=== PATIENT | male | born 1965 | race Caucasian/White ===

== ENCOUNTER 2017-05-27 17:06 | Emergency (ER) | payer OTHER ==
[~2017-05-27] VITALS: Ht 165.1 cm; Wt 98.2 kg
[2017-05-27 17:14] VITALS: Ht 165.1 cm; Wt 98.2 kg
[2017-05-27] MEDS ORDERED: KETOROLAC 30 MG INJ IM STA (18:11)
[2017-05-27] MEDS ORDERED: HYDROCODONE/APAP (5/325) TAB PO ONE (18:30)
--- NOTE | 2017-05-27 19:34 | RADRPT ---
PROCEDURE: Abdomen x-ray CLINICAL INDICATION: Constipation. TECHNIQUE: 4 frontal views the abdomen. COMPARISON: None. FINDINGS: Nonobstructive and nonspecific bowel gas pattern. Moderate solid stool in the transverse and descend ing colons. Mild solid stool in the cecum. Likely mild small bowel ileus in the right lower quadran t. Lung bases are clear. No unusual calcifications are identified over the abdomen. IMPRESSION: Nonobstructive nonspecific bowel gas pattern of the abdomen. RPTAT: UU Physician Karen Date Time Electronically viewed and signed by Ayleen Monte Physician on 05/27/2017 19:33 RS/
--- NOTE | 2017-05-27 19:39 | RADRPT ---
PROCEDURE: X-ray lumbar spine CLINICAL INDICATION: Lower back pain. TECHNIQUE: 3 views of the lumbar spine. COMPARISON: None FINDINGS: Anterior wedge deformities at T12 and L1 levels. Mild superior endplate collapse at L4. Degenerative changes in posterior facets at the L5-S1 level with posterior disk space narrowing. Di sk spaces otherwise substantially preserved. No acute fracture otherwise identified. IMPRESSION: 1. Age indeterminate anterior wedge deformities at T12 and L1 levels. 2. Mild superior endplate collapse at L4. 3. Otherwise, no acute fracture. RPTAT: UU Physician Karen Date Time Electronically viewed and signed by Physician Karen on 05/27/2017 19:39 RS/
--- NOTE | 2017-05-27 21:31 | RADRPT ---
PROCEDURE: CT L-Spine. CLINICAL INDICATION: Low back pain TECHNIQUE: A CT of the lumbar spine was performed on a GE 64-slice CT scanner utilizing high-resol ution thin section axial images from the thoracic lumbar junction through the lumbar sacral junction . Sagittal and coronal and multiplanar reformatted images were made. The CTDIvol is 25.17 mGy and t he DLP is 774.45 mGycm. One of the following 3 dose reduction techniques were utilized on this CT examination: Automated ex posure control; adjustment of the mA and/or kV according to patient size; or use of iterative recon struction technique. COMPARISON: Lumbar spine series dated 05/27/2017 FINDINGS: The visualized spine alignment demonstrates mild straightening of the normal lumbar lordosis. The ap pearance of an acute superior compression fracture deformity of the T12 vertebral body is noted with approximately 30% vertebral body height loss. And indeterminate age L1 vertebral body compression fracture is noted with approximately 45% vertebral body height loss. In addition , a chronic appear ing compression fracture deformity is noted of the L4 vertebral body with 30% vertebral body height loss. Recommend MRI of the lumbar spine to evaluate for acuity of above vertebral body fractures an d potential vertebral plasty candidacy. Degenerative endplate and disk changes are noted at the L5- S1 level with severe disk space height loss. The remainder the disk spaces are preserved. The visualized posterior elements are intact and well aligned. The bilateral paravertebral soft tis sues imaged demonstrate multiple left renal cortical cysts. These are incompletely evaluated. In a ddition, ankylosis is noted of the anterior superior portion of the sacroiliac joints with generaliz ed osteopenia. The specific axial levels are as follows: T11-12: The intervertebral discs is normal. The central canal, subarticular recess and neural fora men are patent. T12-L1: The intervertebral discs is normal. The central canal, subarticular recess, and neural for amen are patent. L1-2: The intervertebral discs is normal. A mild 3 mm broad-based bulge is present. Mild bilateral facet arthropathy is present. The central canal, subarticular recesses are patent. Mild bilateral neural foraminal stenosis is present. Recommend correlation with a bilateral L1 radiculopathy. L2-3: The intervertebral discs is normal with a mild 2 mm broad-based bulge. Mild bilateral facet a rthropathy and ligamentum hypertrophy is present. The central canal, subarticular recess and neural foramen are patent. L3-4: The intervertebral disk is normal. A mild 3 mm broad-based bulge is present. Mild bilateral facet arthropathy and ligamentum hypertrophy is present. AP canal dimension is 10 mm. This results in a mild central canal stenosis, bilateral subarticular recess stenosis and bilateral neural reji inal stenosis. Recommend correlation with a bilateral L3 radiculopathy. L4-5: The L4-5 level: The intervertebral discs is normal. A moderate 4 mm broad-based bulge is pre sent. Mild bilateral facet arthropathy and ligamentum hypertrophy is present. AP canal dimension i s 9.6 mm. This results in a mild central, bilateral subarticular recess stenosis and mild bilateral neural foraminal stenosis. Recommend correlation with a bilateral L4 radiculopathy. L5-1: Severe degenerative endplate and disk changes are present at this level. A 5 mm moderate broa d-based bulge is present. Moderate bilateral facet arthropathy and ligamentum flavum hypertrophy is present. AP canal dimension is 6 mm. This results in a severe central, bilateral subarticular rece ss stenosis and moderate bilateral neural foraminal stenosis. Recommend correlation with a bilateral L5 radiculopathy secondary to neural foraminal stenosis and bilateral S1 radiculopathy secondary to subarticular recess stenosis. IMPRESSION: 1. Likely acute T12 vertebral body compression fracture with approximately 30% vertebral body heig ht loss and probable chronic L1 and L4 vertebral body fractures with 45% height loss and 30% height loss respectively. Recommend lumbar spine MRI to further evaluate for acuity and potential vertebra l plasty candidacy. 2. Severe degenerative endplate and disk changes at L5-S1 3. Multilevel broad-based bulges at the L1-2 through L5-S1 levels with severe central canal stenosi s at L5-S1 and mild at L3-4 and L4-5. 4. Multilevel neural foraminal stenosis at the L1-2, L3-4 through L5-S1 levels. Recommend correlat ion with respective radiculopathy as noted above. 5. Multilevel facet osteoarthropathy and ligamentum flavum hypertrophy. 6. 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 7. Generalized osteopenia 8. Multiple left renal cortical cysts incompletely evaluated and consider renal ultrasound or CT wi th contrast to further evaluate. RPTAT: HDC .Rama Zarate MD, MD Date Time Electronically viewed and signed by .Rama Zarate MD, MD on 05/27/2017 21:30 .C/
[2017-05-27] MEDS ORDERED: HYDR-906 PO (22:22)
[2017-05-27] MEDS ORDERED: DOCU-144 PO (22:22)
--- NOTE | 2017-05-27 22:41 | ERD ---
ER Documentation Chief Complaint Date/Time DATE: 05/27/17 TIME: 22:34 Chief Complaint 8/10 lower back pain x 1 day HPI Patient is a 51-year-old male with no past medical history who presents to the ED with low back pain after lifting a heavy box today. Patient states that he lifted a heavy box and developed pain to his low back side on the left and it radiates to the front. Denies bowel or bladder incontinence. Denies loss of sensation. He is also complaining of constipation for the last 4 days. He does not have a history of constipation. Denies dysuria urgency. Denies fever or chills. Denies abdominal pain, nausea, vomiting or diarrhea. Denies headache or dizziness. Denies passing out or hitting his head. ROS All systems reviewed and are negative except as per history of present illness. Medications Home Meds Active Scripts Docusate Sodium* (Colace*) 100 Mg Capsule, 100 MG PO TID, #30 CAP Prov:CLAIR PEREZ PA-C 05/27/17 Hydrocodone/Acetaminophen ([place]ky 5-325 Tablet) 1 Each Tablet, 1 TAB PO Q6H Y for PAIN, #7 TAB Prov:CLAIR PEREZ PA-C 05/27/17 Allergies Allergies: Coded Allergies: No Known Allergy (Unverified , 05/27/17) PMhx/Soc Medical and Surgical Hx: pt denies Surgical Hx History of Surgery: No Anesthesia Reaction: No Hx Neurological Disorder: No Hx Respiratory Disorders: No Hx Cardiac Disorders: No Hx Psychiatric Problems: No Hx Miscellaneous Medical Probl: Yes (Cholesterol) Hx Alcohol Use: No Hx Substance Use: No Hx Tobacco Use: No Smoking Status: Never smoker FmHx Family History: No coronary disease, No diabetes, No other Physical Exam Vitals Vital Signs Date Time Temp Pulse Resp B/P Pulse Ox O2 Delivery O2 Flow Rate FiO2 05/27/17 17:14 98.8 106 18 149/88 99 Physical Exam GENERAL: Well-developed, well-nourished male. Appears in no acute distress. HEAD: Normocephalic, atraumatic. EYES: Pupils are equally reactive bilaterally. EOMs grossly intact. No conjunctival erythema. ENT: Moist mucous membranes. No uvula deviation. No kissing tonsils. No exudates. NECK: Supple. No lymphadenopathy or thyromegaly. No meningismus. negative kernig. negative brudinski. LUNG: Clear to auscultation bilaterally. No rhonchi, wheezing, rales or coarse breath sounds. HEART: Regular rate and rhythm. No murmurs, rubs or gallops. ABDOMEN: No scars, ecchymosis or rashes noted. Soft, nontender, and nondistended. Positive bowel sounds in all four quadrants. No rebound tenderness , no guarding. (-) McBurneys point tenderness. No CVA tenderness. BACK: No midline tenderness. no spibal tenderness. paraspinal tenderness on left. Extremities: Equal pulses bilaterally. No peripheral clubbing, cyanosis or edema. No unilateral leg swelling. NEUROLOGIC: Alert and oriented. Moving all four extremities. Normal speech. Steady gait. SKIN: Normal color. Warm and dry. No rashes or lesions. Capillary refill < 2 seconds Results 24 hrs Current Medications Medications (Trade) Dose Ordered Sig/Yovany Route PRN Reason Start Time Stop Time Status Last Admin Dose Admin Ketorolac Tromethamine (Toradol) 30 mg ONCE STAT IM 05/27/17 18:11 05/27/17 18:12 DC 05/27/17 18:30 Acetaminophen/ Hydrocodone Bitart ([place]ky (5/325)) 1 tab ONCE ONCE PO 05/27/17 18:30 05/27/17 18:31 DC 05/27/17 18:29 Procedures/MDM ER COURSE: I kept the patient and/or family informed of laboratory and diagnostic imaging results throughout the emergency room course. IMAGING STUDIES [place] [address] Radiology Main Line: [phone] DIAGNOSTIC IMAGING REPORT Patient: VIJAYA GONZALEZ : 1965 Age: 51 Sex: M MR #: [id number] DOS: 05/27/17 1811 Ordering MD: CLAIR PEREZ PA-C Location: [facility] Room/Bed: PROCEDURE: Abdomen x-ray CLINICAL INDICATION: Constipation. TECHNIQUE: 4 frontal views the abdomen. COMPARISON: None. FINDINGS: Nonobstructive and nonspecific bowel gas pattern. Moderate solid stool in the transverse and descending colons. Mild solid stool in the cecum. Likely mild small bowel ileus in the right lower quadrant. Lung bases are clear. No unusual calcifications are identified over the abdomen. IMPRESSION: Nonobstructive nonspecific bowel gas pattern of the abdomen. RPTAT: UU Physician Karen Date Time Electronically viewed and signed by Physician Karen on 05/27/2017 19:33 RS/ CC: CLAIR PEREZ PA-C [place] [address] Radiology Main Line: [phone] DIAGNOSTIC IMAGING REPORT Patient: VIJAYA GONZALEZ : 1965 Age: 51 Sex: M MR #: [id number] DOS: 05/27/17 1811 Ordering MD: CLAIR PEREZ PA-C Location: [facility] Room/Bed: PROCEDURE: X-ray lumbar spine CLINICAL INDICATION: Lower back pain. TECHNIQUE: 3 views of the lumbar spine. COMPARISON: None FINDINGS: Anterior wedge deformities at T12 and L1 levels. Mild superior endplate collapse at L4. Degenerative changes in posterior facets at the L5-S1 level with posterior disk space narrowing. Disk spaces otherwise substantially preserved. No acute fracture otherwise identified. IMPRESSION: 1. Age indeterminate anterior wedge deformities at T12 and L1 levels. 2. Mild superior endplate collapse at L4. 3. Otherwise, no acute fracture. RPTAT: UU Physician Karen Date Time Electronically viewed and signed by Physician Karen on 05/27/2017 19:39 RS/ CC: CLAIR PEREZ PA-C [place] [address] Radiology Main Line: [phone] DIAGNOSTIC IMAGING REPORT Patient: VIJAYA GONZALEZ : 1965 Age: 51 Sex: M MR #: [id number] DOS: 05/27/171942 Ordering MD: CLAIR PEREZ PA-C Location: [facility] Room/Bed: PROCEDURE: CT L-Spine. CLINICAL INDICATION: Low back pain TECHNIQUE: A CT of the lumbar spine was performed on a GE 64-slice CT scanner utilizing high-resolution thin section axial images from the thoracic lumbar junction through the lumbar sacral junction. Sagittal and coronal and multiplanar reformatted images were made. The CTDIvol is 25.17 mGy and the DLP is 774.45 mGycm. One of the following 3 dose reduction techniques were utilized on this CT examination: Automated exposure control; adjustment of the mA and/or kV according to patient size; or use of iterative reconstruction technique. COMPARISON: Lumbar spine series dated 05/27/2017 FINDINGS: The visualized spine alignment demonstrates mild straightening of the normal lumbar lordosis. The appearance of an acute superior compression fracture deformity of the T12 vertebral body is noted with approximately 30% vertebral body height loss. And indeterminate age L1 vertebral body compression fracture is noted with approximately 45% vertebral body height loss. In addition , a chronic appearing compression fracture deformity is noted of the L4 vertebral body with 30% vertebral body height loss. Recommend MRI of the lumbar spine to evaluate for acuity of above vertebral body fractures and potential vertebral plasty candidacy. Degenerative endplate and disk changes are noted at the L5- S1 level with severe disk space height loss. The remainder the disk spaces are preserved. The visualized posterior elements are intact and well aligned. The bilateral paravertebral soft tissues imaged demonstrate multiple left renal cortical cysts. These are incompletely evaluated. In addition, ankylosis is noted of the anterior superior portion of the sacroiliac joints with generalized osteopenia. The specific axial levels are as follows: T11-12: The intervertebral discs is normal. The central canal, subarticular recess and neural foramen are patent. T12-L1: The intervertebral discs is normal. The central canal, subarticular recess, and neural foramen are patent. L1-2: The intervertebral discs is normal. A mild 3 mm broad-based bulge is present. Mild bilateral facet arthropathy is present. The central canal, subarticular recesses are patent. Mild bilateral neural foraminal stenosis is present. Recommend correlation with a bilateral L1 radiculopathy. L2-3: The intervertebral discs is normal with a mild 2 mm broad-based bulge. Mild bilateral facet arthropathy and ligamentum hypertrophy is present. The central canal, subarticular recess and neural foramen are patent. L3-4: The intervertebral disk is normal. A mild 3 mm broad-based bulge is present. Mild bilateral facet arthropathy and ligamentum hypertrophy is present. AP canal dimension is 10 mm. This results in a mild central canal stenosis, bilateral subarticular recess stenosis and bilateral neural foraminal stenosis. Recommend correlation with a bilateral L3 radiculopathy. L4-5: The L4-5 level: The intervertebral discs is normal. A moderate 4 mm broad-based bulge is present. Mild bilateral facet arthropathy and ligamentum hypertrophy is present. AP canal dimension is 9.6 mm. This results in a mild central, bilateral subarticular recess stenosis and mild bilateral neural foraminal stenosis. Recommend correlation with a bilateral L4 radiculopathy. L5-1: Severe degenerative endplate and disk changes are present at this level. A 5 mm moderate broad-based bulge is present. Moderate bilateral facet arthropathy and ligamentum flavum hypertrophy is present. AP canal dimension is 6 mm. This results in a severe central, bilateral subarticular recess stenosis and moderate bilateral neural foraminal stenosis. Recommend correlation with a bilateral L5 radiculopathy secondary to neural foraminal stenosis and bilateral S1 radiculopathy secondary to subarticular recess stenosis. IMPRESSION: 1. Likely acute T12 vertebral body compression fracture with approximately 30 % vertebral body height loss and probable chronic L1 and L4 vertebral body fractures with 45% height loss and 30% height loss respectively. Recommend lumbar spine MRI to further evaluate for acuity and potential vertebral plasty candidacy. 2. Severe degenerative endplate and disk changes at L5-S1 3. Multilevel broad-based bulges at the L1-2 through L5-S1 levels with severe central canal stenosis at L5-S1 and mild at L3-4 and L4-5. 4. Multilevel neural foraminal stenosis at the L1-2, L3-4 through L5-S1 levels. Recommend correlation with respective radiculopathy as noted above. 5. Multilevel facet osteoarthropathy and ligamentum flavum hypertrophy. 6. 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 7. Generalized osteopenia 8. Multiple left renal cortical cysts incompletely evaluated and consider renal ultrasound or CT with contrast to further evaluate. RPTAT: HDC .Rama Zarate MD, MD Date Time Electronically viewed and signed by .Rama Zarate MD, MD on 05/27/2017 21: 30 .C/ CC: CLAIR PEREZ PA-C MEDICAL DECISION MAKING: This is a 51-year-old male who presents with low back pain and constipation. Vital signs were reviewed. Patient is afebrile. Patient is not hypoxic. Patient is nontoxic or ill-appearing. Patient's ultrasound is within normal limits. Patient has constipation. Low suspicion for ACS, AAA, perforated ulcer , bowel obstruction, cholecystitis, choledocholithiasis, cholangitis, pancreatitis, hepatic abscess, appendicitis, diverticulitis, gastroenteritis, hepatitis, peptic ulcer disease. I consulted with my supervising physician Dr. Coelho who advised me to order a CT back after reading the x-rays. CT lumbar spine was within normal limits. I had my supervising physician Dr. dueñas review the imaging studies and stated that the CT was within normal limits and patient is stable for outpatient therapy. Patient was given Toradol and Valium here in the ED. Tolerated well and had improvement in symptoms. I reexamined patient after administration of medication and patient was seen walking around comfortably within the examination room. Low suspicion for cauda equine syndrome, spinal epidural hematoma, spinal epidural abscess, osteomyelitis, fracture, aortic dissection, AAA, pyelonephritis, nephrolithiasis, septic stone , obstructed stone. DISCHARGE: At this time, patient is stable for discharge and outpatient management with no new complaints during the ER course. Patient was sent home with Anna and Lorrie and a copy of all imaging report. Patient will be discharged home with instructions to recheck for new or worsening symptoms such as fever, nausea, weakness, LOC and to follow up with primary care in the next 1-2 days. Patient was advised to return to the ER for any new or worsening symptoms. Plan was discussed and patient and/or family understands and agrees. Home instructions were given. Departure Diagnosis: Primary Impression: Constipation Constipation type: unspecified constipation type Qualified Code: K59.00 - Constipation, unspecified constipation type Additional Impression: Back pain Back pain location: low back pain Chronicity: acute Back pain laterality: bilateral Sciatica presence: without sciatica Qualified Code: M54.5 - Acute bilateral low back pain without sciatica Condition: Stable Patient Instructions: Constipation (Adult) [facility] Usted se delgado hecho un examen mdico de control que le indica que no est en dani condicin que requiera tratamiento urgente en el Departamento de Emergencia. Un estudio ms profundo y el tratamiento de jensen condicin pueden esperar sin ningn riesgo hasta que usted sea atendida/o en el consultorio de jensen mdico o dani cl george. Es responsabilidad suya arreglar dani kapil para el seguimiento del sheila. MANEJO DE CONDICIONES NO URGENTES EN EL FUTURO 1) Si usted tiene un mdico de atencin primaria: Usted debera llamar a jensen mdico de atencin primaria antes de venir al departamento de emergencia. Despus de las horas de consultorio, jensen doctor o jensen asociado/a est disponible por telfono. El mdico o enfermero de shital en el servicio telefnico puede asesorarle por lydia medio para atender el problema, o sheila contrario se puede programar dani kapil. 2) Si usted no tiene un mdico de atencin primaria: Llame al mdico o clnica de referencia que aparece abajo rachel las horas de consultorio para hacer dani kapil para que le vean. CLINICAS: [facility] [phone] [facility] [phone] [address] [facility] [phone] [facility] [phone] [facility] [phone] [address] [facility]. [phone] [address] Additional Instructions: Llame al doctor MAANA y marcos dani KAPIL PARA DENTRO DE 1-2 CONTRERAS.Dgale a la secretaria que nosotros le instruimos hacer esta kapil.Avise o llame si jenesn condicin se empeora antes de la kapil. Regresa aqui si peor o no mejor. CLAIR PEREZ PA-C May 27, 2017 22:41
[2017-05-27 22:51] VITALS: BP 134/89; PULSE 92; RESP 18; TEMP 97.7
== END 2017-05-27 23:30 | disposition home or self-care (01) ==
LOC: FTE 17:06
DX: K59.00 Constipation, unspecified (principal)
CPT/HCPCS: 72100; 72131; 74010; 96372; J1885; Z7502; Z7610

== ENCOUNTER 2017-07-11 11:43 | Emergency (ER) | payer OTHER ==
[~2017-07-11] VITALS: Ht 172.7 cm; Wt 65.5 kg
[~2017-07-11 11:43] MED LIST: DOCU-144 PO; HYDR-906 PO
[2017-07-11 11:54] VITALS: Ht 172.7 cm; Wt 65.5 kg
[2017-07-11] MEDS ORDERED: KETOROLAC 60 MG INJ IM STA (12:25)
[2017-07-11 13:01] LABS: ADD UMIC NO; UR ASCORBIC ACID NEGATIVE (NEGATIVE); UR BILIRUBIN (Dip) NEGATIVE (NEGATIVE); UR BLOOD (Dip) NEGATIVE (NEGATIVE); UR CLARITY CLEAR (CLEAR); UR COLOR YELLOW (YELLOW); UR GLUCOSE (Dip) NEGATIVE (NEGATIVE); UR KETONES (Dip) NEGATIVE (NEGATIVE); UR LEUKOCYTE ESTERASE (Dip) NEGATIVE Leu/ul (NEGATIVE); UR NITRITE (Dip) NEGATIVE (NEGATIVE); UR SPECIFIC GRAVITY (Dip) 1.015 (1.003-1.030); UR TOTAL PROTEIN (Dip) NEGATIVE (NEGATIVE); UR UROBILINOGEN (Dip) NEGATIVE (NEGATIVE)
--- NOTE | 2017-07-11 14:47 | RADRPT ---
PROCEDURE: CT Abdomen and Pelvis without contrast. CLINICAL INDICATION: Abdominal and back pain x3 weeks TECHNIQUE: CT of the abdomen and pelvis was performed on a multi-detector scanner without IV contr ast. Coronal and sagittal images were reformatted from the axial data set. One or more of the foll owing dose reduction techniques were used: automated exposure control, adjustment of the mA and/or k V according to patient size, use of iterative reconstruction technique. CTDI = 6.9 mGy. DLP = 407.2 9 mGy-cm. COMPARISON: CT lumbar spine, 05/27/2017 FINDINGS: CT abdomen: The lung bases are clear. The heart size is normal, without pericardial effusion. Liver, gallbladd er, biliary tree, pancreas, spleen, adrenal glands and kidneys are unremarkable except for benign re nal cysts. No urolithiasis or obstructive uropathy is identified. The stomach is grossly unremarka ble. The aorta is of normal caliber. There is no retroperitoneal lymphadenopathy. The leeanna hepatis reg ion is clear. CT pelvis: No bowel obstruction, free intraperitoneal air or abscess is identified. The appendix is well visua lized and normal. There is no diverticulosis, diverticulitis or colitis. Urinary bladder is grossl y unremarkable. No pelvic mass, free fluid or lymphadenopathy is identified. There is acute to subacute compression fracture of L3, with mild loss of vertebral body height, new when compared to the prior CT. No retropulsed fracture fragment is seen. Spinal alignment is maint ained. There are subacute to chronic mild compression deformities of the T12, L1, and L4, grossly u nchanged from the prior CT. No osteolytic or osteoblastic lesion is detected. IMPRESSION: 1. Acute to subacute mild compression fracture of L3, new when compared to the prior CT, as discuss ed above. 2. Grossly stable subacute to chronic mild compression deformities of T12, L1 and L4. 3. No urolithiasis or obstructive uropathy. 4. No mass, lymphadenopathy, or acute inflammatory process. RPTAT: EE .Jose R Anderson MD, MD Date Time Electronically viewed and signed by .Jose R Anderson MD, MD on 07/11/2017 14:47 .R/
[2017-07-11] MEDS ORDERED: TRAM50TA2 PO (14:57)
[2017-07-11] MEDS ORDERED: DOCU-144 PO (14:57)
--- NOTE | 2017-07-11 15:02 | ERD ---
ER Documentation Chief Complaint Date/Time DATE: 07/11/17 TIME: 15:00 Chief Complaint BACK PAIN X 3 WEEKS HPI This 51-year-old male complains of low back pain for the last 3 weeks. He was seen here a month ago for low back pain diagnosed with constipation. Denies any fevers, vomiting. There is some mild sensation of urinary urgency but no dysuria, blood or discharge. Denies any bowel or bladder incontinence or anesthesia .denies any history of trauma. ROS All systems reviewed and are negative except as per history of present illness. Medications Home Meds Active Scripts Tramadol HCl (Tramadol HCl) 50 Mg Tablet, 50 MG PO Q4 Y for PAIN, #20 TAB Prov:GARY ALMENDAREZ MD 07/11/17 Docusate Sodium* (Colace*) 100 Mg Capsule, 100 MG PO BID, #60 CAP Prov:GARY ALMENDAREZ MD 07/11/17 Docusate Sodium* (Colace*) 100 Mg Capsule, 100 MG PO TID, #30 CAP Prov:CLAIR PEREZ PA-C 05/27/17 Hydrocodone/Acetaminophen (Sparks 5-325 Tablet) 1 Each Tablet, 1 TAB PO Q6H Y for PAIN, #7 TAB Prov:CLAIR PEREZ PA-C 05/27/17 Allergies Allergies: Coded Allergies: No Known Allergy (Unverified , 05/27/17) PMhx/Soc Medical and Surgical Hx: pt denies Surgical Hx History of Surgery: No Anesthesia Reaction: No Hx Neurological Disorder: No Hx Respiratory Disorders: No Hx Cardiac Disorders: No Hx Psychiatric Problems: No Hx Miscellaneous Medical Probl: Yes (Cholesterol) Hx Alcohol Use: No Hx Substance Use: No Hx Tobacco Use: No Smoking Status: Never smoker Physical Exam Vitals Vital Signs Date Time Temp Pulse Resp B/P Pulse Ox O2 Delivery O2 Flow Rate FiO2 07/11/17 11:54 97.9 121 18 134/82 99 Physical Exam Const: [] Letter, [id number]. Head: Atraumatic Eyes: Normal Conjunctiva ENT: Normal External Ears, Nose and Mouth. Neck: Full range of motion..~ No meningismus. Resp: Clear to auscultation bilaterally Cardio: Regular rate and rhythm, no murmurs Abd: Soft, minimal suprapubic discomfort but no rebound and no tenderness at McBurney's point no Villatoro sign., non distended. Normal bowel sounds Skin: No petechiae or rashes Back: No midline or flank tenderness. Generalized L4-L5 paraspinous muscle tenderness. Ext: No cyanosis, or edema Neur: Awake and alert. Ambulatory with discomfort without deficits or weakness. Psych: Normal Mood and Affect Results 24 hrs Laboratory Tests Test 07/11/17 12:34 Urine Color YELLOW Urine Clarity CLEAR Urine pH 6.0 Urine Specific [place] 1.015 Urine Ketones NEGATIVEmg/dL Urine Nitrite NEGATIVEmg/dL Urine Bilirubin NEGATIVEmg/dL Urine Urobilinogen NEGATIVEmg/dL Urine Leukocyte Esterase NEGATIVELeu/ul Urine Hemoglobin NEGATIVEmg/dL Urine Glucose NEGATIVEmg/dL Urine Total Protein NEGATIVEmg/dl Current Medications Medications (Trade) Dose Ordered Sig/Yovany Route PRN Reason Start Time Stop Time Status Last Admin Dose Admin Ketorolac Tromethamine (Toradol) 60 mg ONCE STAT IM 07/11/17 12:25 07/11/17 12:26 DC 07/11/17 12:37 Procedures/MDM Urine is normal. Given the uncertain cause of abdominal pain as well as back pain CT abdomen pelvis are performed which shows compression fractures and degenerative changes of the lumbar spine but no acute intra-abdominal findings. Patient given Toradol 60 mg IM and Sparks 10 mg by mouth. Patient appears to be having symptoms from chronic degenerative changes of the lumbar spine and compression fracture without evidence of spinal cord compression, cauda equina syndrome, epidural abscess, bacterial infection. We treated tramadol and ibuprofen and primary care and orthopedic follow-up. The patient was stable with no new complaints during the ER course. Clinically, there is no current evidence to suggest meningitis, sepsis, acute abdomen, pneumonia, acute coronary syndrome, pulmonary embolism, or any other emergent condition appearing to require further evaluation or hospitalization. The patient should certainly return for any new or worsening symptoms per the aftercare instructions. They should otherwise follow-up with her primary care doctor for reevaluation this week. Disclaimer: Inadvertent spelling and grammatical errors are likely due to EHR/ dictation software use and do not reflect on the overall quality of patient care. Also, please note that the electronic time recorded on this note does not necessarily reflect the actual time of the patient encounter. Departure Diagnosis: Primary Impression: Compression fracture Additional Impression: Back pain Back pain location: low back pain Chronicity: acute Back pain laterality: bilateral Sciatica presence: without sciatica Qualified Code: M54.5 - Acute bilateral low back pain without sciatica Condition: Stable Patient Instructions: Back Pain (Acute Or Chronic) Referrals: [facility] Usblayne se delgado hecho un examen mdico de control que le indica que no est en dani condicin que requiera tratamiento urgente en el Departamento de Emergencia. Un estudio ms profundo y el tratamiento de jensen condicin pueden esperar sin ningn riesgo hasta que usted sea atendida/o en el consultorio de jensen mdico o dani cl george. Es responsabilidad suya arreglar dani eloise para el seguimiento del sheila. MANEJO DE CONDICIONES NO URGENTES EN EL FUTURO 1) Si usted tiene un mdico de atencin primaria: Usted debera llamar a jensen mdico de atencin primaria antes de venir al departamento de emergencia. Despus de las horas de consultorio, jensen doctor o jensen asociado/a est disponible por telfono. El mdico o enfermero de shital en el servicio telefnico puede asesorarle por lydia medio para atender el problema, o sheila contrario se puede programar dani eloise. 2) Si usted no tiene un mdico de atencin primaria: Llame al mdico o clnica de referencia que aparece abajo rachel las horas de consultorio para hacer dani eloise para que le vean. CLINICAS: [facility] [phone] [facility] [phone] [facility] [phone] [facility] [phone] [place] [phone] [facility]. [phone] [address] Additional Instructions: ABDOMEN Y ORINA NORMAL. TIENE ARTRITIS Y FRACTURA EN ESPALDA. Cheque otro vez con jensen doctor primario en el proximo rosales or regresa para mas o nueva simptomas. GARY ALMENDAREZ MD Jul 11, 2017 15:02
[2017-07-11 15:16] VITALS: BP 122/82; PULSE 70; RESP 18; TEMP 97.9
== END 2017-07-11 15:17 | disposition home or self-care (01) ==
LOC: FTE 11:43
DX: S32.030A Wedge compression fracture of third lumbar vertebra, initial encounter for closed fracture (principal); S22.080A Wedge compression fracture of T11-T12 vertebra, initial encounter for closed fracture; S32.010A Wedge compression fracture of first lumbar vertebra, initial encounter for closed fracture; S32.040A Wedge compression fracture of fourth lumbar vertebra, initial encounter for closed fracture; X58.XXXA Exposure to other specified factors, initial encounter; Y92.9 Unspecified place or not applicable
CPT/HCPCS: 74176; 81003; 96372; J1885; Z7502

== ENCOUNTER 2017-11-18 08:01 | Day surgery (SDC) | END 2017-11-18 14:03 | disposition home or self-care (01) ==